=== PATIENT | female | born 1995 | race Caucasian/White ===

== ENCOUNTER 2018-01-17 02:29 | Emergency (ER) | payer SELFPAY ==
[~2018-01-17] VITALS: Ht 157.5 cm; Wt 47.6 kg
[2018-01-17 02:30] VITALS: BP_SYST 109
[2018-01-17 02:47] VITALS: BP_SYST 109
== END 2018-01-17 02:47 ==
LOC: SED 02:29
DX: Z02.89 Encounter for other administrative examinations (principal); J45.909 Unspecified asthma, uncomplicated; Z88.8 Allergy status to other drugs, medicaments and biological substances; V43.92XA Unspecified car occupant injured in collision with other type car in traffic accident, initial encounter; Y93.89 Activity, other specified; Y92.410 Unspecified street and highway as the place of occurrence of the external cause; Y99.8 Other external cause status
CPT/HCPCS: 99283